=== PATIENT | male | born 1955 | race Caucasian/White ===

== ENCOUNTER → 2021-03-06 | Outpatient (CLI) | payer OTHER ==
[~2021-03-06] MED LIST: ALLEGRA ALLERG180 MG PO; COZAAR50 MG PO; ELIQUIS 5 MG TAB5 MG PO; FLOMAX0.4 MG PO; HYDROCHLOROTH12.5 MG PO; MULTAQ 400 MG400 MG PO; NABUMETONE500 MG PO; NORVASC10 MG PO; PROTONIX40 MG PO
== END ==
LOC: KOH-I 15:18
DX: M79.672 Pain in left foot (principal); M19.072 Primary osteoarthritis, left ankle and foot
CPT/HCPCS: 73630